=== PATIENT | male | born 1990 | race Caucasian/White ===

== ENCOUNTER 2016-10-19 20:43 | Emergency (ER) | payer OTHER ==
--- NOTE | 2016-10-19 22:01 | ED Physician Documentation ---
PD HPI LOWER EXT INJURY - Stated complaint Stated Complaint: L&I - RT FOOT INJURY - Chief complaint Chief Complaint: Laceration - History obtained from History obtained from: Patient - History of Present Illness PD HPI LOW EXT INJURY LOCATION: Right, Toe Type of injury: Blunt / blow (At work today, large metal implements fell on the right great toe) Review of Systems Constitutional: denies: Fever, Chills Throat: reports: Reviewed and negative Cardiac: reports: Reviewed and negative PD PAST MEDICAL HISTORY - Past Medical History Past Medical History: Yes Cardiovascular: None Respiratory: Asthma Neuro: None Endocrine/Autoimmune: None GI: None : None HEENT: None Psych: ADD/ADHD Musculoskeletal: None Derm: None - Past Surgical History Past Surgical History: Yes General: Other - Present Medications Home Medications: Ambulatory Orders Medication Instructions Recorded Confirmed Cephalexin [Keflex] 500 mg PO QID #40 capsule 10/19/16 HYDROcod/ACETAM 5/325 [[place] 5/325] 1 - 2 ea PO Q6H PRN #15 tablet 10/19/16 Methylphenidate HCl [Concerta] 36 mg PO DAILY 10/19/16 10/19/16 - Allergies Allergies/Adverse Reactions: Allergies Allergy/AdvReac Type Severity Reaction Status Date / Time No Known Drug Allergies Allergy Verified 10/19/16 20:55 - Social History Does the pt smoke?: No Smoking Status: Never smoker Does the pt drink ETOH?: No Does the pt have substance abuse?: No - Immunizations Immunizations are current?: Yes - POLST Patient has POLST: No PD ED PE NORMAL - Vitals Vital signs reviewed: Yes - General General: Alert and oriented X 3, No acute distress - Extremities Extremities: Other (Right great toe is tender at the distal phalanx, there is partial avulsion of the proximal nail plate the distal nail plate is intact. There is a 50% subungual hematoma.) - Neuro Neuro: Alert and oriented X 3, Normal speech - Psych Psych: Normal mood, Normal affect Results - Vitals Vitals: Vital Signs - 24 hr 10/19/16 10/19/16 20:50 22:25 Temperature 36.8 C Heart Rate 99 87 Respiratory 17 19 Rate Blood Pressure 128/79 146/73 H O2 Saturation 98 97 Oxygen O2 Source Room air - Rads (name of study) R great toe Radiology: EMP read contemporaneously (Adam frx) Procedures - General procedure General procedure: I'm not sure whether the nail is eligible, it did seem pretty intact, the proximal nailbed was tacked down with Dermabond and using electrocautery the nail was trephinated for the subungual hematoma. PD MEDICAL DECISION MAKING - ED course ED course: He has an open fracture of the right great toe, the nail was trephinated and tacked down. Not sure if the nail is salvageable, but at least will act as a splint for now. He was ruperto taped and placed in a fracture shoe. Departure - Departure Disposition: 01 Home, Self Care Clinical Impression: Open fracture of toe of right foot Qualifiers: Encounter type: initial encounter Toe: great toe Phalanx: distal Fracture alignment: displaced Qualified Code(s): S92.421B - Displaced fracture of distal phalanx of right great toe, initial encounter for open fracture Condition: Good Record reviewed to determine appropriate education?: Yes Instructions: ED Fx Toe Open Follow-Up: [facility] [Provider Group] - Within 1 week Prescriptions: Cephalexin [Keflex] 500 mg PO QID #40 capsule HYDROcod/ACETAM 5/325 [[place] 5/325] 1 - 2 ea PO Q6H PRN #15 tablet PRN Reason: Pain Comments: Do not drink or drive while on narcotic pain medicine. Note that many narcotic pain relievers also contain tylenol/acetaminophen. Please ensure that your total dose of acetaminophen from all sources does not exceed 3 grams (3000mg) per day. You may constipated on this medication, take a stool softener such as "Colace" twice a day while you are on it. Also recommend a earj-sei-oitztie laxative such as senna or MiraLAX any day that you do not have a bowel movement. If you received narcotic pain medication in the emergency department, do not drive or operate machinery for the next 24 hours. Forms: Activity restrictions Discharge Date/Time: 10/19/16 22:38
[2016-10-19] MEDS ORDERED: TETANUS/DIPHTHERIA/PERTUSSIS 0.5 ML SYRINGE IM ONE (22:04)
[2016-10-19] MEDS ORDERED: HYDROcod/ACETAM 5/325 MG TABLET ONE (22:04)
[2016-10-19] MEDS: TETANUS/DIPHTHERIA/PERTUSSIS 0.5 ML SYRINGE IM ONE (22:08)
[2016-10-19] MEDS: HYDROcod/ACETAM 5/325 MG TABLET PO STA (22:09)
[2016-10-19] MEDS ORDERED: CEPHALEXIN 250 MG CAPSULE PO ONE (22:21)
[2016-10-19] MEDS: CEPHALEXIN 250 MG CAPSULE PO STA (22:22)
--- NOTE | 2016-10-19 22:22 | XRAY Preliminary Report ---
Exam: XR Toe(s) RT IMPRESSION: There is a fracture with minimal displacement through the tuft of the distal phalanx of t he great toe. [facility] SITE ID: [id number]
--- NOTE | 2016-10-19 22:25 | XRAY Report ---
EXAM: RIGHT TOE RADIOGRAPHY EXAM DATE: 10/19/2016 10:09 PM. CLINICAL HISTORY: Heavy object landed on the right toe, pain COMPARISON: None. TECHNIQUE: 3 views. FINDINGS: Bones: Fracture through the tuft of the distal phalanx of the great toe. Joints: No dislocation. Soft Tissues: Mild soft tissue swelling. IMPRESSION: There is a fracture with minimal displacement through the tuft of the distal phalanx of t he great toe. [facility] Referring Provider Line: [phone] SITE ID: [id number]
[2016-10-19 22:27] VITALS: BP 146/73
== END 2016-10-19 22:38 | disposition home or self-care (01) ==
LOC: ED 20:43
DX: S92.421B Displaced fracture of distal phalanx of right great toe, initial encounter for open fracture (principal); S90.211A Contusion of right great toe with damage to nail, initial encounter; W20.8XXA Other cause of strike by thrown, projected or falling object, initial encounter; Y99.0 Civilian activity done for income or pay; Z23 Encounter for immunization; J45.909 Unspecified asthma, uncomplicated
CPT/HCPCS: 11740; 11760; 73660; 90471; 99283; 99284